=== PATIENT | male | born 1945 | race African-American/Black ===

== ENCOUNTER 2018-02-13 01:46 | Emergency (ER) | payer MEDICARE, MEDICAID ==
[~2018-02-13] VITALS: Ht 188 cm; Wt 104.5 kg
[2018-02-13] MEDS ORDERED: MORPHINE SULFATE 4 MG/ML CPJ (NOT FOR IM USE) IV STA (02:33)
[2018-02-13] MEDS ORDERED: ONDANSETRON HCL 4MG/2ML VIAL IV STA (02:33)
[2018-02-13] MEDS ORDERED: KETOROLAC 30MG/ML VIAL IV STA (02:33)
[2018-02-13] MEDS ORDERED: METHYLPREDNISOLONE SOD SUCC 40 MG/ML VIAL IV ONE (02:45)
[2018-02-13] MEDS ORDERED: SODIUM CHLORIDE 0.9% 1,000 ML IV ONE (02:45)
[2018-02-13] MEDS ORDERED: DIAZEPAM 2 MG TABLET PO ONE (02:45)
[2018-02-13] MEDS ORDERED: MORPHINE SULFATE 4 MG/ML CPJ (NOT FOR IM USE) IV ONE (05:00)
[2018-02-13] MEDS ORDERED: DIAZEPAM 2 MG TABLET PO SCH (05:53)
[2018-02-13 09:34] VITALS: BP 115/60
== END 2018-02-13 09:49 | disposition home or self-care (01) ==
LOC: ER 01:46
DX: M54.5 Low back pain (principal); E11.9 Type 2 diabetes mellitus without complications; I10 Essential (primary) hypertension
CPT/HCPCS: 96374; 96375; 96376; 99285; J1885; J2270; J2405; J2920; J7030